=== PATIENT | female | born 1945 | race Caucasian/White ===

== ENCOUNTER 2017-09-16 13:18 | Outpatient (CLI) | payer MEDICARE, OTHER ==
--- NOTE | 2017-09-16 17:42 | Diagnostic Imaging Report ---
ZACH CAIN (SEDRICK) - OP [facility] [id number] [facility] [address] [address] Report Submission Date: Sep 16, 2017 2:09:35 PM CDT Patient Study Name: THUY GODINEZ Date: Sep 16, 2017 1:26:52 PM CDT Modality Type: DX Gender: F Description: LOWER EXTREMITY : 41 Institution: [facility] Physician: ZACH CAIN (SEDRICK) - OP Examination: Plain film right knee History: RT KNEE, PAIN IN RT KNEE X1 MONTH, WORSE IN THE LAST DAY, NO KNOWN INJURY (Hx) Findings: 2 views of the right knee demonstrates osteopenia. Mild medial and patellar spurring No fracture. No dislocation. No joint effusion. No soft tissue irregularity. Impression: Osteopenia. Mild degenerative changes. No acute appearing osseous abnormality Electronically signed on Sep 16, 2017 2:09:35 PM CDT by: Fredy EVANS
== END 2017-09-16 13:20 ==
LOC: RAD 13:18
PROVIDERS: ATTEND Nurse Practitioner Family
DX: M25.562 Pain in left knee (principal)
CPT/HCPCS: 73560

== ENCOUNTER 2018-06-12 10:46 | Outpatient (CLI) | payer MEDICARE, OTHER ==
--- NOTE | 2018-06-12 16:39 | Diagnostic Imaging Report ---
ZACH MERCADO (SEDRICK) - OP [facility] [address] [facility] [address] Report Submission Date: Jun 12, 2018 2:38:59 PM ACQUISITION COST ESTIMATOR Patient Study Name: THUY GODINEZ Date: Jun 12, 2018 11:07:36 AM ACQUISITION COST ESTIMATOR Modality Type: DX Gender: F Description: LOWER EXTREMITY : 41 Institution: [facility] Physician: ZACH MERCADO (SEDRICK) - OP 3 views of the left ankle History: FELL 1 WEEK AGO PATIENT STATES TURNED FOOT/ANKLE AND HAS PAIN/SWELLING/BRUISING No comparison studies Faint lucent line traverses the left distal fibula with adjacent soft tissue swelling. There is no fracture fragment identified. Degenerative changes are present at the left ankle. Ankle mortise is intact. Again noted are nodular soft tissue densities in the left distal leg. Degenerative changes of the midfoot. Os trigonum. Impression: 1. Lucent line traverses the left lateral malleolus with ankle joint effusion and soft tissue swelling, seen only on the frontal view concerning for nondisplaced fracture. No fracture fragment is identified. Recommend orthopedic evaluation and followup. 2. Degenerative changes. Electronically signed on Jun 12, 2018 2:38:59 PM ACQUISITION COST ESTIMATOR by: Fabiola Mac Findings were discussed by Dr. Mac with RN Ms. Mercado on 06/12/18 at approx. 2:41 pm ACQUISITION COST ESTIMATOR Addendum electronically signed by Fabiola Mac on June 12, 2018 2:43:46 PM ACQUISITION COST ESTIMATOR MTDD
--- NOTE | 2018-06-12 16:40 | Diagnostic Imaging Report ---
ZACH CAIN (SEDRICK) - OP [facility] [address] [facility] [address] [address] Report Submission Date: Jun 12, 2018 2:33:29 PM OFFICE SYSTEM ANALYST Patient Study Name: THUY GODINEZ Date: Jun 12, 2018 11:11:08 AM OFFICE SYSTEM ANALYST Modality Type: DX Gender: F Description: LOWER EXTREMITY : 41 Institution: [facility] Physician: ZACH CAIN (SEDRICK) - OP 2 views of the left tibia and fibula History: FELL 1 WEEK AGO PATIENT STATES TURNED FOOT/ANKLE AND HAS PAIN/SWELLING/BRUISING No comparison studies A faint lucent line traverses the distal fibula. Soft tissue swelling is noted at the left ankle. Degenerative changes are noted at the ankle joint and at the knee. Several nodular densities are noted in the soft tissues of the left leg, indeterminate, as may be seen in varicosities versus neurofibromatosis. Os trigonum Impression: 1. Faint lucent line traverses the distal fibula, while this may be related to architecture, a nondisplaced distal fibular fracture is included in the differential diagnosis. No fracture fragment is identified. Soft tissue swelling is present at the left ankle 2. Degenerative changes of the left ankle and knee. Electronically signed on Jun 12, 2018 2:33:29 PM OFFICE SYSTEM ANALYST by: Fabiola EVANS
--- NOTE | 2018-06-12 16:40 | Diagnostic Imaging Report ---
ZACH CAIN (SEDRICK) - OP [facility] [address] [facility] [address] Report Submission Date: Jun 12, 2018 2:42:54 PM REPAIRER WELDING EQUIPMENT Patient Study Name: THUY GODINEZ Date: Jun 12, 2018 11:04:31 AM REPAIRER WELDING EQUIPMENT Modality Type: DX Gender: F Description: LOWER EXTREMITY : 41 Institution: [facility] Physician: ZACH CAIN (SEDRICK) - OP 3 views of the left foot History: FELL 1 WEEK AGO PATIENT STATES TURNED FOOT/ANKLE AND HAS PAIN/SWELLING/BRUISING No prior comparison studies Intact left foot. Degenerative changes are noted in the midfoot. Again noted is os trigonum. Faint lucent line traversing the distal fibula is again seen only on the AP view Impression: 1. Intact left foot. Electronically signed on Jun 12, 2018 2:42:54 PM REPAIRER WELDING EQUIPMENT by: Fabiola EVANS
== END 2018-06-12 10:47 ==
LOC: RAD 10:46
PROVIDERS: ATTEND Nurse Practitioner Family
DX: M17.12 Unilateral primary osteoarthritis, left knee (principal); M19.072 Primary osteoarthritis, left ankle and foot; M25.472 Effusion, left ankle; M79.672 Pain in left foot; M79.662 Pain in left lower leg; M25.572 Pain in left ankle and joints of left foot
CPT/HCPCS: 73590; 73610; 73630

== ENCOUNTER 2018-10-12 12:26 | Outpatient (CLI) | payer OTHER ==
--- NOTE | 2018-10-12 15:27 | Diagnostic Imaging Report ---
ZACH CAIN (FURNACE CHARGER) - OP [facility] [address] [address] Report Submission Date: Oct 12, 2018 3:04:22 PM CDT Patient Study Name: THUY GODINEZ Date: Oct 12, 2018 12:29:20 PM CDT Modality Type: DX Gender: F Description: CHEST 2VIEW : 41 Institution: [facility] Physician: ZACH CAIN (SEDRICK) - OP Examination: PA and lateral chest. History: Evaluate lung tinoco. CHEST PAIN SINCE FALL IN JUNE, exam: None provided. Findings: PA and lateral views of the chest demonstrates a normal cardiac and mediastinal silhouette. Tortuous aorta. No focal infiltrate. No blunting of the costophrenic margins. Osseous structures are appropriate for age. Impression: No acute pulmonary process. Electronically signed on Oct 12, 2018 3:04:22 PM CDT by: Fredy EVANS
--- NOTE | 2018-10-12 15:28 | Diagnostic Imaging Report ---
ZACH CAIN (SEDRICK) - OP [facility] [address] [address] Report Submission Date: Oct 12, 2018 3:05:22 PM CDT Patient Study Name: THUY GODINEZ Date: Oct 12, 2018 12:29:20 PM CDT Modality Type: DX Gender: F Description: T SPINE 3 VIEWS : 41 Institution: [facility] Physician: ZACH CAIN (SEDRICK) - OP Examination: Plain film thoracic spine History: BACK PAIN SINCE A FALL IN JUNE Findings: 3 views of the thoracic spine demonstrate normal height. No anterior compression. Scattered osteophytes. No soft tissue abnormalities. Impression: Degenerative changes. No vertebral body compression deformity. Electronically signed on Oct 12, 2018 3:05:22 PM CDT by: Fredy EVANS
== END 2018-10-12 12:56 ==
LOC: RAD 12:26
PROVIDERS: ATTEND Nurse Practitioner Family
DX: R07.9 Chest pain, unspecified (principal); M54.6 Pain in thoracic spine
CPT/HCPCS: 71046; 72072